=== PATIENT | female | born 1980 | race Two or more races ===

== ENCOUNTER 2019-01-23 07:14 | Inpatient (IN) | payer SELFPAY ==
[2019-01-23 08:34] LABS: APPEARANCE,URINE SLIGHTLY-CLOUDY; BILIRUBIN,URINE NEGATIVE (NEGATIVE); COLOR,URINE YELLOW; GLUCOSE, URINE NEGATIVE (NEGATIVE); KETONES,URINE NEGATIVE (NEGATIVE); LEUKOCYTE ESTERASE,URINE NEGATIVE (NEGATIVE); NITRITE,URINE NEGATIVE (NEGATIVE); PROTEIN,URINE NEGATIVE (NEGATIVE); URINE SPECIFIC GRAVITY 1.008; UROBILINOGEN,URINE NEGATIVE mg/dL (<2.0)
[2019-01-23 09:03] LABS: URINE AMPHETAMINES SCREEN NEGATIVE; URINE BARBITURATES SCREEN NEGATIVE; URINE BENZODIAZEPINES SCREEN NEGATIVE; URINE COCAINE SCREEN NEGATIVE; URINE MARIJUANA (THC) SCREEN NEGATIVE; URINE METHADONE SCREEN NEGATIVE; URINE PHENCYCLIDINE SCREEN NEGATIVE
[2019-01-23] MEDS ORDERED: PENICILLIN G POTASSIUM 5,000,000 UNIT in DEXTROSE 5%-WATER 100 ML IV ONE (10:20)
[2019-01-23] MEDS ORDERED: RINGERS SOLUTION,LACTATED 1,000 ML IV PRN (10:20)
[2019-01-23] MEDS ORDERED: RINGERS SOLUTION,LACTATED 1,000 ML IV ONE (10:20)
[2019-01-23] MEDS ORDERED: PENICILLIN G-K 5 MILLION UNIT VIAL ONE (11:11)
[2019-01-23] MEDS ORDERED: OXYTOCIN/NORMAL SALINE 20 UNIT/1,000 ML RTUINJ IV PRN ×2 (11:16→20:47)
[2019-01-23] MEDS ORDERED: OXYTOCIN/NORMAL SALINE 20 UNIT/1,000 ML RTUINJ ONE (11:19)
[2019-01-23 11:31] LABS: ABSOLUTE LYMPHOCYTES (AUTO) 1.3 10^3/uL (0.5-4.7); ABSOLUTE MONOCYTES (AUTO) 0.4 10^3/uL (0.1-1.4); ABSOLUTE NEUT (AUTO) 5.5 10^3/uL (1.7-8.2); BASOPHILS % (AUTO) 0.4 % (0-2); EOSINOPHILS % (AUTO) 0.6 % (0-6); HEMATOCRIT 36.8 % (36.0-47.0); HEMOGLOBIN 12.4 g/dL (12.0-15.5); LYMPHOCYTES % (AUTO) 18.2 % (13-45); MEAN CORPUSCULAR HEMOGLOBIN 30.5 pg (27.0-33.4); MEAN CORPUSCULAR HGB CONC 33.8 g/dL (32.0-36.0); MEAN CORPUSCULAR VOLUME 91 fl (80-97); MONOCYTES % (AUTO) 4.9 % (3-13); PLATELET COUNT 233 10^3/uL (150-450); RED BLOOD COUNT 4.07 10^6/uL (3.72-5.28); RED CELL DISTRIBUTION WIDTH 14.5 % (11.5-14.0); SEGMENTED NEUTROPHILS % (AUTO) 75.9 % (42-78); TOTAL CELLS COUNTED % (AUTO) 100 %; WHITE BLOOD COUNT 7.2 10^3/uL (4.0-10.5)
--- NOTE | 2019-01-23 11:54 | Admission Physical ---
Datetime Report Generated by CPN: 01/23/2019 11:54 CURRENT ADMISSION Hx Assessment: The History has been Reviewed and is Current Chief Complaint: Uterine Contractions Indication for Induction: Not Applicable Admit Impression : Postterm, Intrauterine ; Active Labor Admit Plan: Admit to Unit; Initiate Labor Protocol ALLERGIES Medication Allergies: No Medication Allergies: No Known Allergies (01/23/2019) Latex: No Latex Allergies Food Allergies: None Environmental Allergies: None OBSTETRICAL HISTORY EDC: 01/28/2019 00:00 : 4 Para: 3 Term: 3 : 0 SAB: 0 IAB: 0 Ectopic: 0 Livin Cesareans: 0 VBACs: 0 Multiple Births: 0 Gestational Diabetes: No Rh Sensitization: No Incompetent Cervix: No DUONG: No Infertility: No ART Treatment: No Uterine Anomaly: No IUGR: No Hx Previous C/S: No Macrosomia: No Hx Loss/Stillborn: No PIH: No Hx : No Placenta Previa/Abruption: No Depression/PP Depression: No PTL/PROM: No Post Hemorrhage: No Current Procedures: Ultrasound; NST Obstetrical History Comments: G1 - at term (1995) G2 - at term (1996) G3 - at term (2005) G4 - Current SEE RECORDS Alcohol: No Marijuana : No Cocaine: No Other Illicit Drugs: No Cigarettes: Never Smoker. [id number] MEDICAL HISTORY Diabetes: No Blood Transfusion: No Pulmonary Disease (Asthma, TB): No Breast Disease: No Hypertension: No Assistant Professor Surgery: No Heart Disease: No Hosp/Surgery: No Autoimmune Disorder: No Anesthetic Complications: No Kidney Disease: No Abnormal Pap Smear: No Neuro/Epilepsy: No Psychiatric Disorders: No Other Medical Diseases: No Hepatitis/Liver Disease: No Significant Family History: No Varicosities/Phlebitis: No Trauma/Violence : No Thyroid Dysfunction: No INFECTIOUS HISTORY Gonorrhea: No Genital Herpes: No Chlamydia: No Tuberculosis: No Syphilis: No Hepatitis: No HIV/AIDS Exposure: No Rash or Viral Illness: No HPV: No PHYSICAL EXAM General: Normal HEENT: Deferred Neurologic: Normal Thyroid: Normal Heart: Normal Lungs: Normal Breast: Deferred Back: Normal Abdomen: Normal Genitourinary Exam: Normal Extremities: Normal DTRs: Normal Pelvic Type: Adequate Physical Exam Comments: OB care in [place], came to see daughter and started bleeding, SROM sono 12-28-18 = EFW 6-1` Pelvis proven for 9-2 AMA= 38 y/o Trying to obtain records GBS unknown, will treat for GBS ROM 0430 12-24-18 Vital Signs: Reviewed FETUS A EGA: 39.2 Monitoring: External US Variability: Moderate 6-25bpm Accelerations: 15X15 Decelerations: None FHR Category: Category I Admit Comment: Admitted to LD for vaginal bleeding and ROM,, VE 1/thick start Pitocin, plans to breast feed, epidural if needed, Soraida Lynne aware of admission and saw patient earlier POC discussed with patient and she agrees for Pitocin to stimulate labor Trying to obtain records from [place], pt states her is uneventable NKA anticipate PLANS FOR LABOR AND DELIVERY Labor and Delivery: None Pain Management: Natural; Epidural Feeding Preference: Breast Benefit of Breast Feed Discussed: Yes Circumcision: N/A INFORMED CONSENT Assignment: Radha Israel MD Signature: with User ID: [email or web address] : with User ID: [email or web address]
[2019-01-23] MEDS ORDERED: MISOPROSTOL 0.2 MG TABLET ONE (13:22)
[2019-01-23] MEDS ORDERED: OXYTOCIN 10 UNIT/ML VIAL ONE (13:22)
[2019-01-23] MEDS ORDERED: LIDOCAINE 1% INJ-PF (10 MG/ML) 30 ML SDV ONE (13:22)
[2019-01-23] MEDS ORDERED: NALBUPHINE HCL INJ 10 MG/1 ML AMPULE ONE (16:42)
[2019-01-23] MEDS ORDERED: FENTANYL CITRATE INJ/PF 100 MCG/2 ML AMPUL ONE (18:35)
[2019-01-23] MEDS ORDERED: ACETAMINOPHEN WITH CODEINE #3 TABLET PO PRN ×2 (20:47)
[2019-01-23] MEDS ORDERED: ZOLPIDEM TARTRATE 5 MG TABLET PO PRN (20:47)
[2019-01-23] MEDS ORDERED: DIPH/PERTUSS(ACELL)/TETANUS VAC/PF 0.5 ML SYR (>=10YO) IM PRN (20:47)
[2019-01-23] MEDS ORDERED: BENZOCAINE/MENTHOL AEROSOL SPRAY 56 ML TOP PRN (20:47)
[2019-01-23] MEDS ORDERED: DIBUCAINE 1% OINTMENT 56 GM TP PRN (20:47)
--- NOTE | 2019-01-23 22:07 | Delivery Summary ---
Del Sum A-C Datetime Report Generated by CPN: 01/23/2019 22:06 DELIVERY PERSONNEL DELIVERY PERSONNEL: [id number] Delivery Doctor:: Radha Israel MD Labor and Delivery Nurse:: Graciela Cavazos RN Nursery Nurse:: Evelyn Cody RN Physical Education Aide/CHOPPER FEEDER: Radha Green, ST MATERNAL INFORMATION Delivery Anesthesia: None Medications After Delivery: Pitocin Bolus-Please Comment; Cytotec 1000mcg Per Rectum/Vagina Estimated Blood Loss (ml): 500 Maternal Complications: None Provider Comments: of a viable female at 1915 with an JULIANO presentation; APGARS 9, 9; 1st deg perineal lac LABOR SUMMARY EDC: 01/28/2019 00:00 No. Babies in Womb: 1 Attempted: No Labor Anesthesia: IV Sedation LABOR INFORMATION Reason for Induction: Not Applicable Onset of Labor: 01/23/2019 09:38 Complete Dilatation: 01/23/2019 18:45 Oxytocin: Augmentation Group B Beta Strep: Negative Antibiotics # of Doses: 0 Steroids Given: None Reason Steroids Not Administered: Not Applicable MEMBRANES Membranes Rupture Method: Spontaneous Rupture of Membranes: 01/23/2019 04:30 Length of Rupture (hr): 14.72 Amniotic Fluid Color: Clear Amniotic Fluid Amount: Small Amniotic Fluid Odor: Normal STAGES OF LABOR Stage 1 hr: 9 Stage 1 min: 7 Stage 2 hr: 0 Stage 2 min: 28 Stage 3 hr: 0 Stage 3 min: 5 Total Time in Labor hr: 9 Total Time in Labor min: 40 VAGINAL DELIVERY Episiotomy: None Laceration #1: Perineal Laceration Extension #1: First Degree Laceration Repair: Not Applicable Laceration Repair Note: 1st degree perineal lac repaired with 3-0 chromic Sponge Count Correct: Yes Sharps Count Correct: Yes BABY A INFORMATION Delivery Date/Time: 01/23/2019 19:13 Method of Delivery: Vaginal Born in Route : No : N/A Forceps: N/A Vacuum Extraction: N/A Shoulder Dystocia : No PRESENTATION/POSITION BABY A Presentation: Cephalic Cephalic Presentation: Vertex Vertex Position: Right Occipital Anterior Breech Presentation: N/A PLACENTA INFORMATION BABY A Placenta Delivery Time : 01/23/2019 19:18 Placenta Method of Delivery: Spontaneous Placenta Status: Delivered SCORES BABY A Heart Rate 1 min: >100 bpm Resp Effort 1 min: Good Cry Reflex Irritability 1 min: Cough or Sneeze or Pulls Away Muscle Tone 1 min: Active Motion Color 1 min: Body [place], Extremities Blue Resuscitation Effort 1 min: Tactile Stimulation SCORE 1 MIN: 9 Heart Rate 5 min: >100 bpm Resp Effort 5 min: Good Cry Reflex Irritability 5 min: Cough or Sneeze or Pulls Away Muscle Tone 5 min: Active Motion Color 5 min: Body [place], Extremities Blue Resuscitation Effort 5 min: Tactile Stimulation SCORE 5 MIN: 9 INFORMATION BABY A Gestational Age at Delivery: 39.2 Gestational Status: Full Term- 39- 40.6 Weeks Infant Outcome : Liveborn Infant Condition : Stable Infant Sex: Female IDENTIFICATION BABY A Verification Date/Time: 01/23/2019 19:56 ID Band Number: [id number] Mother's Name Verified: Yes RN Verifying : D Bellavance RN/C Vactat RN WEIGHT/LENGTH BABY A Infant Birthweight (gm): 3971 Infant Weight (lb): 8 Infant Weight (oz): 12 Length (in): 20.00 Length (cm): 50.80 CORD INFORMATION BABY A No. Cord Vessels: 3 Nuchal Cord : N/A Cord Blood Taken: Yes-For Eval (Mom's Blood Type - or O+) Suction: None ASSESSMENT BABY A Complications: None Physical Findings at Delivery: Within Normal Limits Infant Respirations: Appears Normal Laborer [place]/ALS Called : No Transferred To: Remains with Mother BABY B INFORMATION : N/A SIGNATURES Signature: with User ID: [email or web address]
[2019-01-23] MEDS: IBUPROFEN 800 MG TABLET PO SCH (23:09)
[2019-01-24] MEDS: PENICILLIN G POTASSIUM 2,500,000 UNIT in DEXTROSE 5%-WATER 50 ML IV SCH ×2 (00:55→00:56)
[2019-01-24] MEDS: IBUPROFEN 800 MG TABLET PO SCH ×3 (05:17→21:02)
[2019-01-24 09:01] LABS: HEMATOCRIT 27.2 % (36.0-47.0); MEAN CORPUSCULAR HEMOGLOBIN 30.6 pg (27.0-33.4); MEAN CORPUSCULAR HGB CONC 34.8 g/dL (32.0-36.0); MEAN CORPUSCULAR VOLUME 88 fl (80-97); PLATELET COUNT 221 10^3/uL (150-450); RED BLOOD COUNT 3.09 10^6/uL (3.72-5.28); RED CELL DISTRIBUTION WIDTH 14.5 % (11.5-14.0); WHITE BLOOD COUNT 8.5 10^3/uL (4.0-10.5)
[2019-01-24 09:03] LABS: HEMOGLOBIN 9.5 g/dL (12.0-15.5)
[2019-01-24] MEDS: PRENATAL VITAMIN W DHA CAPSULE PO SCH (10:17)
[2019-01-24] MEDS: DOCUSATE SODIUM 100 MG CAPSULE PO SCH ×2 (10:18→17:44)
[2019-01-24] MEDS: SENNOSIDES/DOCUSATE 8.6-50 MG 1 EACH TABLET PO SCH (10:18)
[2019-01-24] MEDS: FERROUS SULFATE 325 MG TABLET PO SCH ×2 (10:18→17:44)
--- NOTE | 2019-01-24 10:58 | PDOC PROGRESS REPORT ---
Subjective-OB Progress Note for:: 01/24/19 Subjective: 38yo G4 now P4 s/p ppd1. Ambulating, and voiding without difficulty. Reports pain well controlled with medication. Denies any concerns today. Physical Exam (OB) Vital Signs: Temp Pulse Resp BP Pulse Ox 98.9 F 70 18 129/67 H 99 01/24/19 08:21 01/24/19 08:21 01/24/19 08:21 01/24/19 08:21 01/24/19 08:21 Intake & Output 01/23/19 01/24/19 01/25/19 06:59 06:59 06:59 Intake Total 240 Balance 240 Weight 110.1 kg - General General Appearance: Appears well In distress: None - PIH/Pre-Eclampsia Clonus: Negative Headache: Absent Epigastric Pain: No Visual Changes: No - Episiotomy/Laceration Site Condition: Well Approximated - Lochia Lochia Amount: Scant < 10 ml Lochia Color: Rubra/Red - Abdomen Description: Soft Hernia Present: No Fundal Description: Firm, Midline Fundal Height: u/u - u/2 - Respiratory Respiratory Status: No respiratory distress - Extremities Upper extremity: Normal inspection Lower extremities: Normal inspection - Neurological Cognition: Normal Orientation: AAOx4 - Psychological Associated symptoms: Normal affect, Normal mood Objective-Diagnostic Laboratory: 01/24/19 08:04 01/23/19 01/23/19 01/24/19 11:06 11:06 08:04 WBC 7.2 8.5 RBC 4.07 3.09 L Hgb 12.4 9.5 L D Hct 36.8 27.2 L MCV 91 88 MCH 30.5 30.6 MCHC 33.8 34.8 RDW 14.5 H 14.5 H Plt Count 233 221 Seg Neutrophils % 75.9 Blood Type O POSITIVE Antibody Screen NEGATIVE Assessment and Plan(PN) - Assessment and Plan (1) Vaginal delivery Is this a current diagnosis for this admission?: Yes Plan: Routine pp care (2) Acute blood loss anemia Is this a current diagnosis for this admission?: Yes Plan: increase dietary iron and FeSO4 BID. (3) Perineal laceration during delivery, delivered Is this a current diagnosis for this admission?: Yes Plan: continue to monitor for s/s of infection (4) Advanced maternal age (AMA), 40 years or greater Is this a current diagnosis for this admission?: Yes Plan: delivered - Time Spent with Patient Time with patient: Less than 15 minutes Medications reviewed and adjusted accordingly: Yes - Disposition Anticipated Discharge: Home Within: within 24 hours
[2019-01-25] MEDS: IBUPROFEN 800 MG TABLET PO SCH (05:56)
[2019-01-25] MEDS ORDERED: INFLUENZA QUAD (6MOS+) 2019-20 VAC 0.5 ML SYR IM ONE (08:00)
[2019-01-25 09:06] VITALS: BP 127/76
--- NOTE | 2019-01-25 09:16 | PDOC PROGRESS REPORT ---
Subjective-OB Progress Note for:: 01/25/19 Subjective: Doing well, no c/o, ready to go home, Dr. Sharma talking to pt and hsb, Physical Exam (OB) Vital Signs: Temp Pulse Resp BP Pulse Ox 97.8 F 88 16 127/76 H 100 01/25/19 09:05 01/25/19 09:05 01/25/19 09:05 01/25/19 09:05 01/25/19 09:05 Intake & Output 01/24/19 01/25/19 01/26/19 06:59 06:59 06:59 Intake Total 240 480 Balance 240 480 Weight 110.1 kg - PIH/Pre-Eclampsia Clonus: Negative Headache: Absent Epigastric Pain: No Visual Changes: No - Lochia Lochia Amount: Scant < 10 ml Lochia Color: Rubra/Red - Abdomen Description: Soft Hernia Present: No Fundal Description: Firm, Midline Fundal Height: u/u - u/2 Objective-Diagnostic Laboratory: 01/24/19 08:04 Assessment and Plan(PN) - Assessment and Plan (1) Vaginal delivery Is this a current diagnosis for this admission?: Yes (2) Acute blood loss anemia Is this a current diagnosis for this admission?: Yes (3) Perineal laceration during delivery, delivered Is this a current diagnosis for this admission?: Yes (4) Advanced maternal age (AMA), 40 years or greater Is this a current diagnosis for this admission?: Yes - Time Spent with Patient Time with patient: Less than 15 minutes Medications reviewed and adjusted accordingly: Yes - Disposition Anticipated Discharge: Home Within: within 24 hours
--- NOTE | 2019-01-25 09:21 | PDOC DISCHARGE SUMMARY ---
Impression - Admit/DC Date/PCP Admission Date/Primary Care Provider: 01/23/19 10:16 Discharge Date: 01/25/19 - Discharge Diagnosis (1) Vaginal delivery Is this a current diagnosis for this admission?: Yes (2) Acute blood loss anemia Is this a current diagnosis for this admission?: Yes (3) Perineal laceration during delivery, delivered Is this a current diagnosis for this admission?: Yes (4) Advanced maternal age (AMA), 40 years or greater Is this a current diagnosis for this admission?: Yes - Additional Information Resuscitation Status: Full Code Discharge Diet: As Tolerated, Regular Discharge Activity: Activity As Tolerated, No Lifting Over 10 Pounds, No Lifting/Push/Pulling, Pelvic Rest Referrals: [facility], [ACTIVE STAFF] - (RTC 2 weeks) Home Medications: Vits96/Iron Fum/Folic [ Tablet] 1 tab PO DAILY 01/23/19 Ferrous Sulfate [Feosol 325 mg Tablet] 325 mg PO BID tablet 01/25/19 Vit/Dha [ Multi + Dha Capsule] 1 cap PO DAILY capsule 01/25/19 HPI Gestational Age: 39.2 Reason(s) for Admission: PROM Procedures: NST, Ultrasound Procedure(s) Note: Pitocin augmentation Intrapartum Procedure(s): Spontaneous Vaginal Delivery Complication(s): Laceration-Perineal Laceration-Degree: 1st Hospital Course Hospital Course: routine Results Laboratory Results: WBC 8.5 10^3/uL (4.0-10.5) 01/24/19 08:04 RBC 3.09 10^6/uL (3.72-5.28) L 01/24/19 08:04 Hgb 9.5 g/dL (12.0-15.5) L D 01/24/19 08:04 Hct 27.2 % (36.0-47.0) L 01/24/19 08:04 MCV 88 fl (80-97) 01/24/19 08:04 MCH 30.6 pg (27.0-33.4) 01/24/19 08:04 MCHC 34.8 g/dL (32.0-36.0) 01/24/19 08:04 RDW 14.5 % (11.5-14.0) H 01/24/19 08:04 Plt Count 221 10^3/uL (150-450) 01/24/19 08:04 Lymph % (Auto) 18.2 % (13-45) 01/23/19 11:06 [place] % (Auto) 4.9 % (3-13) 01/23/19 11:06 Eos % (Auto) 0.6 % (0-6) 01/23/19 11:06 Baso % (Auto) 0.4 % (0-2) 01/23/19 11:06 Absolute Neuts (auto) 5.5 10^3/uL (1.7-8.2) 01/23/19 11:06 Absolute Lymphs (auto) 1.3 10^3/uL (0.5-4.7) 01/23/19 11:06 Absolute Monos (auto) 0.4 10^3/uL (0.1-1.4) 01/23/19 11:06 Absolute Eos (auto) 0.0 10^3/uL (0.0-0.6) 01/23/19 11:06 Absolute Basos (auto) 0.0 10^3/uL (0.0-0.2) 01/23/19 11:06 Seg Neutrophils % 75.9 % (42-78) 01/23/19 11:06 Urine Color YELLOW 01/23/19 07:10 Urine Appearance SLIGHTLY-CLOUDY 01/23/19 07:10 Urine pH 7.0 (5.0-9.0) 01/23/19 07:10 Ur Specific [place] 1.008 01/23/19 07:10 Urine Protein NEGATIVE mg/dL (NEGATIVE) 01/23/19 07:10 Urine Glucose (UA) NEGATIVE mg/dL (NEGATIVE) 01/23/19 07:10 Urine Ketones NEGATIVE mg/dL (NEGATIVE) 01/23/19 07:10 Urine Blood LARGE (NEGATIVE) H 01/23/19 07:10 Urine Nitrite NEGATIVE (NEGATIVE) 01/23/19 07:10 Urine Bilirubin NEGATIVE (NEGATIVE) 01/23/19 07:10 Urine Urobilinogen NEGATIVE mg/dL (<2.0) 01/23/19 07:10 Ur Leukocyte Esterase NEGATIVE (NEGATIVE) 01/23/19 07:10 Urine Ascorbic Acid NEGATIVE (NEGATIVE) 01/23/19 07:10 Amniotic Ferning Test FERN PATTERN ABSENT (ABSENT) 01/23/19 09:32 Membranes Rupture POSITIVE (NEGATIVE) H 01/23/19 09:32 Urine Opiates Screen NEGATIVE 01/23/19 07:10 Urine Methadone Screen NEGATIVE 01/23/19 07:10 Ur Barbiturates Screen NEGATIVE 01/23/19 07:10 Ur Phencyclidine Scrn NEGATIVE 01/23/19 07:10 Ur Amphetamines Screen NEGATIVE 01/23/19 07:10 U Benzodiazepines Scrn NEGATIVE 01/23/19 07:10 Urine Cocaine Screen NEGATIVE 01/23/19 07:10 U Marijuana (THC) Screen NEGATIVE 01/23/19 07:10 RPR NONREACTIVE (NONREACTIVE) 01/23/19 11:06 Blood Type O POSITIVE 01/23/19 11:06 Antibody Screen NEGATIVE 01/23/19 11:06 Plan Health Concerns: routine Plan of Treatment: continue PNV's. reviewed S&S to report, baby home with patient Goals: home with baby Time Spent: Less than 30 Minutes
[2019-01-25] MEDS: PRENATAL VITAMIN W DHA CAPSULE PO SCH (10:39)
[2019-01-25] MEDS: FERROUS SULFATE 325 MG TABLET PO SCH (10:39)
[2019-01-25] MEDS: DOCUSATE SODIUM 100 MG CAPSULE PO SCH (10:39)
[2019-01-25] MEDS: SENNOSIDES/DOCUSATE 8.6-50 MG 1 EACH TABLET PO SCH (10:39)
== END 2019-01-25 12:49 | disposition home or self-care (01) | DRG 806 ==
LOC: LC 07:14 → LR 10:16 → 2S 22:16
PROVIDERS: ADMIT Obstetrics & Gynecology; ATTEND Obstetrics & Gynecology
PROC: 10E0XZZ Delivery of Products of Conception, External Approach (ICD-10-PCS; principal; 2019-01-23)
PROC: 0HQ9XZZ Repair Perineum Skin, External Approach (ICD-10-PCS; 2019-01-23)
PROC: 3E02340 Introduction of Influenza Vaccine into Muscle, Percutaneous Approach (ICD-10-PCS; 2019-01-25)
DX: O70.0 First degree perineal laceration during delivery (principal); D62 Acute posthemorrhagic anemia; Z37.0 Single live birth; O90.81 Anemia of the puerperium; Z23 Encounter for immunization; Z3A.39 39 weeks gestation of pregnancy
CPT/HCPCS: 36415; 59025; 80307; 81005; 84112; 85025; 85027; 86592; 86850; 86900; 86901; 90686; 94760; J2300; J2540; J2590; J3010; J3490; Q0114